=== PATIENT | male | born 1990 | race Caucasian/White ===

== ENCOUNTER 2023-09-21 01:20 | Emergency (ER) | payer OTHER ==
[~2023-09-21] VITALS: Ht 165.1 cm; Wt 77.1 kg
[2023-09-21 01:25] VITALS: BP 137/79; PULSE 97; RESP 18; TEMP 98; O2SAT 99
[2023-09-21 02:00] VITALS: BP 137/79; PULSE 97; RESP 18; TEMP 98; O2SAT 99
== END 2023-09-21 02:08 ==
LOC: MED 01:20
DX: Z02.89 Encounter for other administrative examinations (principal); V49.88XA Car occupant (driver) (passenger) injured in other specified transport accidents, initial encounter; Y93.89 Activity, other specified; Y92.89 Other specified places as the place of occurrence of the external cause; Y99.8 Other external cause status
CPT/HCPCS: 99283